=== PATIENT | female | born 1985 | race Caucasian/White ===

== ENCOUNTER 2017-03-04 16:50 | Emergency (ER) | payer BC ==
[2017-03-04 17:07] VITALS: BP 129/82
--- NOTE | 2017-03-04 18:49 | UC ---
Snehal Ireland Claudia, scribed for Richard Quezada MD on 03/04/17 at 1752 . Complaint Female HPI - HPI Summary HPI Summary: 31 year old female presents to the [facility] with Sx. Pt states graduyal onset of Sx on Saturday01/31/17. Pt states dysuria, urgency, frequency of urinary Sx. Pt denies any vomiting. Pt has been taking OTC medications to help with Sx but they have not helped in alleviating the Sx. She states that she took a OTC urine test for UTI on Saturday and it came back positive for leukocytes. Pt last menstrual period was 2 weeks ago. Pt thought she was getting better yesterday but today the Sx returned and worsened. - History Of Current Complaint Chief Complaint: UCGU Stated Complaint: URINARY ISSUE Time Seen by Provider: 03/04/17 17:45 Hx Last Menstrual Period: 02/25/17 Onset/Duration: Gradual Onset, Lasting Days - since Saturday03/02/17, Still Present, Worse Since - today Timing: Constant Pain Scale Used: 0-10 Numeric Associated Signs And Symptoms: Negative: Back Pain, Vomiting(# Of Episodes =) - Allergies/Home Medications Allergies/Adverse Reactions: Allergies Allergy/AdvReac Type Severity Reaction Status Date / Time pollen, grass Allergy Congestion Uncoded 07/29/16 09:43 PMH/Surg Hx/FS Hx/Imm Hx Previously Healthy: Yes Endocrine History Of: Reports: Thyroid Disease Denies: Diabetes Cardiovascular History Of: Denies: Cardiac Disorders, Hypertension Respiratory History Of: Denies: COPD, Asthma GI/ History Of: Reports: Ulcer - GI Psychological History Of: Reports: Anxiety, Depression - Surgical History Surgical History: Yes Surgery Procedure, Year, and Place: cys, ovary removed - Family History Known Family History: Positive: Cardiac Disease, Hypertension, Diabetes - Social History Occupation: Employed Full-time Lives: Alone Alcohol Use: None Substance Use Type: None Smoking Status (MU): Never Smoked Tobacco - Immunization History Most Recent Influenza Vaccination: none Review of Systems Constitutional: Negative - NO FEVER CHILLS Skin: Negative Eyes: Negative ENT: Negative Respiratory: Negative Cardiovascular: Negative Gastrointestinal: Negative - NO VOMITTING Genitourinary: Dysuria, Frequency, Urgency Motor: Negative Neurovascular: Negative Musculoskeletal: Negative Neurological: Negative Psychological: Negative All Other Systems Reviewed And Are Negative: Yes Physical Exam Triage Information Reviewed: Yes Appearance: Well-Appearing, No Pain Distress Vital Signs: Initial Vital Signs Temp 97.8 F 03/04/17 17:03 Pulse 79 03/04/17 17:03 Resp 16 03/04/17 17:03 BP 129/82 03/04/17 17:03 Pulse Ox 100 03/04/17 17:03 Eyes: Positive: Conjunctiva Clear ENT: Positive: Normal ENT inspection Respiratory: Positive: Lungs clear, Normal breath sounds Cardiovascular: Positive: RRR, No Murmur Abdomen Description: Positive: Nontender. Negative: CVA Tenderness (R), CVA Tenderness (L) Neurological: Positive: Alert, Other: - Alert and oriented times three. Speaks full sentences clearly. Psychological: Positive: Age Appropriate Behavior Skin: Negative: rashes Complaint Female Dx - Course Course Of Treatment: 31 yr old female with urinary symptoms. Will DC home, urine culture sent. UA is negative. FU pmd - Differential Dx/Diagnosis Provider Diagnoses: dysuria Discharge - Discharge Plan Condition: Good Disposition: HOME Patient Education Materials: Dysuria (ED) Referrals: Karishma Rendon MD [Primary Care Provider] - The documentation as recorded by the Snehal jolley Claudia accurately reflects the service I personally performed and the decisions made by , Richard Quezada MD.
== END 2017-03-04 19:14 | disposition home or self-care (01) ==
LOC: UCEAST 16:50
DX: E07.9 Disorder of thyroid, unspecified (principal); R30.0 Dysuria; F41.9 Anxiety disorder, unspecified; F32.9 Major depressive disorder, single episode, unspecified
CPT/HCPCS: 81003; 84702; 87086; 99211; G0463

== ENCOUNTER 2017-08-16 17:46 | Emergency (ER) | payer BC | END 2017-08-16 18:00 | disposition left against medical advice (07) | LOC: UCEAST 17:46 | DX: Z53.21 Procedure and treatment not carried out due to patient leaving prior to being seen by health care provider (principal) ==

== ENCOUNTER 2017-08-16 18:37 | Emergency (ER) | payer BC ==
[2017-08-16] MEDS ORDERED: NS 0.9% 1000 ML* 1,000 ML IV SCH (20:00)
[2017-08-16] MEDS ORDERED: Ondansetron INJ* 2 MG/ML VIAL ONE (20:47)
[2017-08-16 20:51] LABS: Hematocrit 35 % (35-47); Hemoglobin 11.7 g/dl (12.0-16.0); Mean Corpuscular HGB Conc 34 g/dl (31-36); Mean Corpuscular Hemoglobin 28 pg (27-31); Mean Corpuscular Volume 84 fL (80-97); Mean Platelet Volume 8 um3 (7.4-10.4); Red Blood Count 4.16 10^6/ul (4.0-5.4); Red Cell Distribution Width 15 % (10.5-15); White Blood Count 11.5 10^3/ul (3.5-10.8)
[2017-08-16] MEDS ORDERED: Ondansetron INJ* 2 MG/ML VIAL IV ONE (20:57)
[2017-08-16 21:07] LABS: ALT 9 U/L (7-52); AST 12 U/L (13-39); Albumin 4.4 g/dL (3.2-5.2); Alkaline Phosphatase 95 U/L (34-104); Anion Gap 7 mmol/L (2-11); BUN/Creatinine Ratio 16.2 (8-20); Blood Urea Nitrogen 12 mg/dL (6-24); CO2 Carbon Dioxide 27 mmol/L (22-32); Calcium 9.2 mg/dL (8.6-10.3); Chloride 103 mmol/L (101-111); EGFR African American 116.2 (>60); EGFR Non-African American 90.4 (>60); Globulin 2.8 g/dL (2-4); Glucose 96 mg/dL (70-100); Lipase 14 U/L (11.0-82.0); Potassium 3.6 mmol/L (3.5-5.0); Sodium 137 mmol/L (133-145); Total Protein 7.2 g/dL (6.4-8.9)
--- NOTE | 2017-08-16 21:25 | RAD ---
Indication: Right upper quadrant tenderness. Real-time sonography of the right upper quadrant was performed. The liver is normal in size. No focal lesions or intrahepatic ductal dilatation is noted. The gallbladder demonstrates multiple echogenic foci with posterior acoustic shadowing consistent with cholelithiasis. No pericholecystic fluid or wall thickening is identified. The common duct is not dilated. The pancreas head, neck and proximal body demonstrates no mass or pancreatic ductal dilatation. IMPRESSION: Cholelithiasis without evidence of biliary duct dilatation.
[2017-08-16] MEDS ORDERED: Iohexol 300* (CONTRAST) 10 ML SDV IV ONE (21:29)
[2017-08-16 22:23] LABS: Urine Bacteria 1+ (Absent); Urine Bilirubin Negative (Negative); Urine Glucose Negative (Negative); Urine Nitrite Negative (Negative)
[2017-08-17 00:12] VITALS: BP 133/80
--- NOTE | 2017-08-17 05:24 | ED ---
Lesley Ireland Emily, scribed for Montrell Marieuel on 08/16/17 at 1953 . Abdominal Pain/Female - HPI Summary HPI Summary: This patient is a 31 year old F presenting to [facility] with a chief complaint of waxing and waning epigastric abd pain that began earlier today. The CC is described as a pinching ache. The patient rates the pain 4/10 in severity. Symptoms aggravated by nothing. Symptoms alleviated by nothing. Patient reports dark, purple-red blood in stool, nausea, and constipation. Pt reports having blood in stool approximately 2 weeks ago. FHx includes UC/colitis. - History of Current Complaint Chief Complaint: EDAbdPain Stated Complaint: STOMACH PAIN/BLOOD IN STOOL Time Seen by Provider: 08/16/17 19:45 Hx Obtained From: Patient Hx Last Menstrual Period: 02/25/17 Onset/Duration: Sudden Onset, Lasting Hours, Still Present Timing: Constant Severity Initially: Moderate Severity Currently: Moderate Pain Intensity: 4 Pain Scale Used: 0-10 Numeric Location: Epigastric Aggravating Factor(s): Nothing Alleviating Factor(s): Nothing Associated Signs and Symptoms: Positive: Other: - Positive dark, purple-red blood in stool, nausea, and constipation Allergies/Adverse Reactions: Allergies Allergy/AdvReac Type Severity Reaction Status Date / Time pollen, grass Allergy Congestion Uncoded 07/29/16 09:43 PMH/Surg Hx/FS Hx/Imm Hx Previously Healthy: No Endocrine/Hematology History: Reports: Hx Thyroid Disease Denies: Hx Diabetes Cardiovascular History: Denies: Hx Hypertension Respiratory History: Denies: Hx Asthma, Hx Chronic Obstructive Pulmonary Disease (COPD) GI History: Reports: Hx Ulcer - GI Psychiatric History: Reports: Hx Anxiety, Hx Depression - Surgical History Surgery Procedure, Year, and Place: cys, ovary removed Infectious Disease History: No Infectious Disease History: Denies: Hx Clostridium Difficile, Hx Hepatitis, Hx Human Immunodeficiency Virus (HIV), Hx of Known/Suspected MRSA, Hx Shingles, Hx Tuberculosis, Hx Known/ Suspected VRE, Hx Known/Suspected VRSA, History Other Infectious Disease, Traveled Outside the [place] in Last 30 Days - Family History Known Family History: Positive: Cardiac Disease, Hypertension, Diabetes - Social History Occupation: Employed Full-time Lives: Alone Alcohol Use: None Substance Use Type: Reports: None Smoking Status (MU): Never Smoked Tobacco Review of Systems Negative: Fever Positive: Abdominal Pain, Nausea, Other - Positive constipation and dark, purple -red blood in stool All Other Systems Reviewed And Are Negative: Yes Physical Exam Triage Information Reviewed: Yes Vital Signs On Initial Exam: Initial Vitals Temp Pulse Resp BP Pulse Ox 98.1 F 96 20 128/98 100 08/16/17 18:54 08/16/17 18:54 08/16/17 18:54 08/16/17 18:54 08/16/17 18:54 Vital Signs Reviewed: Yes Appearance: Positive: Well-Appearing, No Pain Distress Skin: Positive: Warm, Skin Color Reflects Adequate Perfusion, Dry Head/Face: Positive: Normal Head/Face Inspection Eyes: Positive: EOMI, JANET ENT: Positive: Normal ENT inspection Neck: Positive: Supple, Nontender Respiratory/Lung Sounds: Positive: Clear to Auscultation, Breath Sounds Present Cardiovascular: Positive: RRR, Pulses are Symmetrical in both Upper and Lower Extremities Abdomen Description: Positive: Soft, Other: - Tenderness in the epigastric, RLQ , and RUQ Bowel Sounds: Positive: Present Pelvic Exam: Positive: other - Witnessed by female RN. No blood. Musculoskeletal: Positive: Normal, Strength/ROM Intact Neurological: Positive: Normal, Sensory/Motor Intact, Alert, Oriented to Person Place, Time Diagnostics - Vital Signs Vital Signs Temp Pulse Resp BP Pulse Ox 08/16/17 18:54 98.1 F 96 20 128/98 100 - Laboratory Lab Results: Lab Results 08/16/17 08/16/17 08/16/17 Range/Units 20:42 20:42 20:42 WBC 11.5 H (3.5-10.8) 10^3/ul RBC 4.16 (4.0-5.4) 10^6/ul Hgb 11.7 L (12.0-16.0) g/dl Hct 35 (35-47) % MCV 84 (80-97) fL MCH 28 (27-31) pg MCHC 34 (31-36) g/dl RDW 15 (10.5-15) % Plt Count 292 (150-450) 10^3/ul MPV 8 (7.4-10.4) um3 Neut % (Auto) 83.6 H (38-83) % Lymph % (Auto) 12.5 L (25-47) % [place] % (Auto) 2.9 (1-9) % Eos % (Auto) 0.6 (0-6) % Baso % (Auto) 0.4 (0-2) % Absolute Neuts (auto) 9.6 H (1.5-7.7) 10^3/ul Absolute Lymphs (auto) 1.4 (1.0-4.8) 10^3/ul Absolute Monos (auto) 0.3 (0-0.8) 10^3/ul Absolute Eos (auto) 0.1 (0-0.6) 10^3/ul Absolute Basos (auto) 0 (0-0.2) 10^3/ul Absolute Nucleated RBC 0 10^3/ul Nucleated RBC % 0 INR (Anticoag Therapy) 1.03 (0.89-1.11) APTT 34.2 (26.0-36.3) seconds Sodium 137 (133-145) mmol/L Potassium 3.6 (3.5-5.0) mmol/L Chloride 103 (101-111) mmol/L Carbon Dioxide 27 (22-32) mmol/L Anion Gap 7 (2-11) mmol/L BUN 12 (6-24) mg/dL Creatinine 0.74 (0.51-0.95) mg/dL Est GFR ( Amer) 116.2 (>60) Est GFR (Non-Af Amer) 90.4 (>60) BUN/Creatinine Ratio 16.2 (8-20) Glucose 96 (70-100) mg/dL Calcium 9.2 (8.6-10.3) mg/dL Total Bilirubin 0.40 (0.2-1.0) mg/dL AST 12 L (13-39) U/L ALT 9 (7-52) U/L Alkaline Phosphatase 95 (34-104) U/L Troponin I 0.00 (<0.04) ng/mL Total Protein 7.2 (6.4-8.9) g/dL Albumin 4.4 (3.2-5.2) g/dL Globulin 2.8 (2-4) g/dL Albumin/Globulin Ratio 1.6 (1-3) Lipase 14 (11.0-82.0) U/L Beta HCG, Quant < 0.60 mIU/mL Urine Color Urine Appearance Urine pH (5-9) Ur Specific Jen[place] (1.010-1.030) Urine Protein (Negative) Urine Ketones (Negative) Urine Blood (Negative) Urine Nitrate (Negative) Urine Bilirubin (Negative) Urine Urobilinogen (Negative) Ur Leukocyte Esterase (Negative) Urine WBC (Auto) (Absent) Urine RBC (Auto) (Absent) Ur Squamous Epith Cells (Absent) Amorphous Crystals (Absent) Urine Bacteria (Absent) Urine Glucose (Negative) 08/16/17 Range/Units 22:10 WBC (3.5-10.8) 10^3/ul RBC (4.0-5.4) 10^6/ul Hgb (12.0-16.0) g/dl Hct (35-47) % MCV (80-97) fL MCH (27-31) pg MCHC (31-36) g/dl RDW (10.5-15) % Plt Count (150-450) 10^3/ul MPV (7.4-10.4) um3 Neut % (Auto) (38-83) % Lymph % (Auto) (25-47) % [place] % (Auto) (1-9) % Eos % (Auto) (0-6) % Baso % (Auto) (0-2) % Absolute Neuts (auto) (1.5-7.7) 10^3/ul Absolute Lymphs (auto) (1.0-4.8) 10^3/ul Absolute Monos (auto) (0-0.8) 10^3/ul Absolute Eos (auto) (0-0.6) 10^3/ul Absolute Basos (auto) (0-0.2) 10^3/ul Absolute Nucleated RBC 10^3/ul Nucleated RBC % INR (Anticoag Therapy) (0.89-1.11) APTT (26.0-36.3) seconds Sodium (133-145) mmol/L Potassium (3.5-5.0) mmol/L Chloride (101-111) mmol/L Carbon Dioxide (22-32) mmol/L Anion Gap (2-11) mmol/L BUN (6-24) mg/dL Creatinine (0.51-0.95) mg/dL Est GFR ( Amer) (>60) Est GFR (Non-Af Amer) (>60) BUN/Creatinine Ratio (8-20) Glucose (70-100) mg/dL Calcium (8.6-10.3) mg/dL Total Bilirubin (0.2-1.0) mg/dL AST (13-39) U/L ALT (7-52) U/L Alkaline Phosphatase (34-104) U/L Troponin I (<0.04) ng/mL Total Protein (6.4-8.9) g/dL Albumin (3.2-5.2) g/dL Globulin (2-4) g/dL Albumin/Globulin Ratio (1-3) Lipase (11.0-82.0) U/L Beta HCG, Quant mIU/mL Urine Color Yellow Urine Appearance Cloudy Urine pH 6.0 (5-9) Ur Specific Jen[place] 1.008 L (1.010-1.030) Urine Protein Negative (Negative) Urine Ketones Negative (Negative) Urine Blood 1+ H (Negative) Urine Nitrate Negative (Negative) Urine Bilirubin Negative (Negative) Urine Urobilinogen Negative (Negative) Ur Leukocyte Esterase Negative (Negative) Urine WBC (Auto) Absent (Absent) Urine RBC (Auto) Trace(0-2/hpf) (Absent) Ur Squamous Epith Cells Present H (Absent) Amorphous Crystals Present H (Absent) Urine Bacteria 1+ H (Absent) Urine Glucose Negative (Negative) Result Diagrams: 08/16/17 20:42 08/16/17 20:42 Lab Statement: Any lab studies that have been ordered have been reviewed, and results considered in the medical decision making process. - CT A/P CT Interpretation Completed By: Radiologist - A CT A/P read by radiologist reveals no bowel obstruction, colitis, diverticulitis, free fluid or free air. Normal appendix. Unremarkable pancreas, kidneys and gallbladder. Small umbilical hernia containing fat. 1.5 corpus luteum right ovary. ED physician has read this radiology report and agrees. - Additional Comments Diagnostic Additional Comments: An US gallbladder read by radiologist reveals cholelithiasis without evidence of biliary duct dilatation. ED physician has reviewed this radiology report and agrees. Re-Evaluation - Re-Evaluation First Eval Re-Evaluation Time: 00:07 Change: Improved Comment: Patient is in no pain Abdominal Pain Fem Course/Dx - Course Course Of Treatment: This patient is a 31 year old F presenting to [facility] with a chief complaint of waxing and waning epigastric abd pain that began earlier today. The CC is described as a pinching ache. Patient reports dark, purple-red blood in stool, nausea, and constipation. Pt reports having blood in stool approximately 2 weeks ago. FHx includes UC/colitis. Physical Exam Findings. Tenderness in the epigastric and RLQ and RUQ. No blood upon a rectal exam. Medical Decision Making. A CT A/P read by radiologist reveals no bowel obstruction, colitis, diverticulitis, free fluid or free air. Normal appendix. Unremarkable pancreas, kidneys and gallbladder. Small umbilical hernia containing fat. 1.5 corpus luteum right ovary. An US gallbladder read by radiologist reveals cholelithiasis without evidence of biliary duct dilatation. ED physician has reviewed this radiology report and agrees. Bloodwork/UA obtained. In the ED course the patient was given fluids. Patientis stable for discharge home with follow up from . The patient is agreeable with this plan. - Diagnoses Differential Diagnosis: Positive: Appendicitis, Bowel Obstruction, Diverticulitis, Pancreatitis, Peptic Ulcer Disease Provider Diagnoses: Gallstones, Abdominal pain Discharge - Discharge Plan Condition: Stable Disposition: HOME Patient Education Materials: Gallstones (ED), Acute Abdominal Pain (ED) Referrals: Clark Ugarte MD [Medical Doctor] - 1 Week The documentation as recorded by the Lesley jolley Emily accurately reflects the service I personally performed and the decisions made by , Billy Marie.
--- NOTE | 2017-08-17 09:12 | RAD ---
CLINICAL HISTORY: Right lower quadrant pain COMPARISON: None TECHNIQUE: Contrast enhanced CT examination of the abdomen and pelvis from the lung bases through the initial tuberosities. The patient received 96 mL Omnipaque 300 intravenously prior to imaging.The patient received oral contrast as well prior to imaging. FINDINGS: VISUALIZED LUNG BASES: The visualized lung bases are grossly clear. There is no pleural effusion. ABDOMEN AND PELVIS: The liver, spleen, pancreas and adrenal glands are grossly normal in appearance. There is a small amount of hyperattenuating material in the dependent gallbladder consistent with stones and/or sludge. The gallbladder is otherwise normal in appearance according to CT criteria. The kidneys are normal in appearance without focal mass, calcification or signs of hydronephrosis. The oral contrast has progressed as far as the hepatic flexure. The small and large bowel are not distended. The patient's normal appendix is identified in the right lower quadrant measuring up to 5 mm in diameter (axial image 67 and coronal image 49). There is no gross retroperitoneal or mesenteric lymphadenopathy. The pelvic viscera is normal in appearance. A low-density focus measuring 1.4 cm in the right adnexa is most consistent with a follicle in a woman of this age. The abdominal aorta and iliac arteries are normal in course and diameter. There are no sinister bone lesions. IMPRESSION: 1. Likely cholelithiasis and/or gallbladder sludge without signs of biliary obstruction or acute inflammatory change in the right upper quadrant. 2. Incidentally noted is a likely ovarian follicle in the right adnexa in a woman of this age.
== END 2017-08-17 00:32 | disposition home or self-care (01) ==
LOC: ED 18:37
DX: K80.80 Other cholelithiasis without obstruction (principal); K42.9 Umbilical hernia without obstruction or gangrene; R10.13 Epigastric pain; R10.31 Right lower quadrant pain
CPT/HCPCS: 36415; 74177; 76705; 80053; 81003; 81015; 82272; 83690; 84484; 84702; 85025; 85610; 85730; 87086; 96374; 96375; 99284; J2405; Q9967